=== PATIENT | male | born 1935 | race Caucasian/White ===

== ENCOUNTER 2022-08-31 14:09 | Emergency (ER) | payer MEDICARE, SELFPAY ==
[2022-08-31 14:15] VITALS: BP 155/79; PULSE 87; RESP 18; TEMP 36.6; O2SAT 96; BMI 25.8
--- NOTE | 2022-08-31 14:20 | DI.RAD.S_ITS ---
PROCEDURE: XR ELBOW LT MIN 3V INDICATIONS: fall/pain TECHNIQUE: 3 views of the elbow were acquired. COMPARISON: None. FINDINGS: Bones: No fractures or dislocations. No suspicious bony lesions. Soft tissues: No elbow joint effusion. No suspicious soft tissue calcifications. Soft tissue swelling posterior to the elbow and over the olecranon. IMPRESSION: No definitive fracture. If clinical symptoms persist or clinical suspicion for pathology is high, a repeat examination in 7-10 days, or advanced imaging such as CT or MRI is suggested for further evaluation. Dictated by: Zaria Moss M.D. on 08/31/2022 at 15:11 Approved by: Zaria Moss M.D. on 08/31/2022 at 15:12
--- NOTE | 2022-08-31 14:20 | DI.RAD.S_ITS ---
PROCEDURE: XR SHOULDER LT MIN 2V INDICATIONS: fall/pain TECHNIQUE: 3 views of the shoulder were acquired. COMPARISON: None. FINDINGS: Bones: No fractures or dislocations. No suspicious bony lesions. 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 Visualized ribs appear intact. Soft tissues: No suspicious soft tissue calcifications. IMPRESSION: 1. No definitive acute osseous abnormality. If clinical symptoms persist or clinical suspicion for pathology is high, a repeat examination in 7-10 days, or advanced imaging such as CT or MRI is suggested for further evaluation. 2. Moderate osteoarthritic changes. Dictated by: Zaria Moss M.D. on 08/31/2022 at 15:13 Approved by: Zaria Moss M.D. on 08/31/2022 at 15:14
--- NOTE | 2022-08-31 14:22 | DI.RAD.S_ITS ---
PROCEDURE: XR HIP W PEL IF DONE LT 2V INDICATIONS: fall/pain TECHNIQUE: AP pelvis with lateral view(s) of the left hip(s). COMPARISON: None. 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 2 surgical wires in the proximal femur. The more distal wire is fractured. Chronicity uncertain. No fractures or dislocations. Pelvic ring appears intact. No suspicious bony lesions. Note is made of right hip arthroplasty. 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 Soft tissues: The visualized bowel gas pattern is normal. No suspicious soft tissue calcifications. IMPRESSION: 1. Left hip arthroplasty. Fracture the more distal surgical wire is noted, suggesting chronicity. 2. No acute osseous abnormality. If clinical symptoms persist or clinical suspicion for pathology is high, a repeat examination in 7-10 days, or advanced imaging such as CT or MRI is suggested for further evaluation. Dictated by: Zaria Moss M.D. on 08/31/2022 at 15:14 Approved by: Zaria Moss M.D. on 08/31/2022 at 15:17
[2022-08-31] MEDS: HYDROCODONE/ACET 5/325 TABLET 1 TAB PO (15:42)
[2022-08-31] MEDS: LIDOCAINE PATCH 1 EACH ADH..PATCH TOP (15:42)
--- NOTE | 2022-08-31 15:46 | ED_ITS ---
HPI - Fall <RAZA Santana - Last Filed: 08/31/22 16:17> General Chief Complaint: Fall Stated Complaint: fell/lt shoulder inj Time Seen by Provider: 08/31/22 15:21 Source: patient Mode of arrival: Ambulatory History of Present Illness HPI Narrative: This is an 87-year-old who presents emergency department after a mechanical fall. Patient reports that he is had history of vertigo over the last few month s, has been in physical therapy for, today he tripped while golfing today and caught himself but fell onto his left shoulder and left elbow. He also injured his left hip. 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 He states that he did not hit his head, denies loss of consciousness, denies nausea vomiting or midline neck pain. Denies vision changes, has pain when he tries to lift his arm up, states that he has posterior shoulder pain, left elbow pain and an abrasion on it, and left hip pain. He is concerned about his hardware, states that he had 2 wires wrapped ar ound the bone to help hold it in many years ago. Dr. Hendricks from [facility] was patient's surgeon. Related Data Home Medications Medication Instructions Recorded Confirmed sildenafil 25 mg tablet (Viagra) ##0 10/12/16 Previous Rx's Medication Instructions Recorded acetaminophen 300 mg-codeine 30 mg 1 tab PO Q4HP PRN #14 tabs 10/12/16 tablet diclofenac sodium 1 % topical gel 2 g topical QID PRN pain #100 grams 08/31/22 hydrocodone 5 mg-acetaminophen 325 1 tab PO Q6H PRN pain #14 tabs 08/31/22 mg tablet lidocaine 5 % topical patch 1 patch topical Q12HR PRN shoulder 08/31/22 (Lidoderm) pain #30 ea Allergies Allergy/AdvReac Type Severity Reaction Status Date / Time ibuprofen [IBUPROFEN] Allergy Unknown Unverified 05/17/17 11:46 Review of Systems <RAZA Santana - Last Filed: 08/31/22 16:17> Review of Systems ROS Unobtainable: All systems reviewed & are unremarkable except as noted in HPI and below Patient History <RAZA Santana - Last Filed: 08/31/22 16:17> Social History Smoking Status: Never smoker Smoking Status: Never smoker Substance Use Type: does not use Exam <RAZA Santana - Last Filed: 08/31/22 16:17> Narrative Exam Narrative: Reviewed vitals signs and nursing notes. General: Pleasant, sitting upright, in no acute distress, well groomed, afebrile HEENT: symmetrical facial expressions, moist mucous membranes, neck is supple MSK: moves all extremities, no weakness, normal tone, ambulatory without deficit, patient has an abrasion to the left elbow, can fully flex and fully extend his left elbow without deficit, radial pulses 2+, warm skin with brisk cap refill. No tenderness over the olecranon or proximal radius/ulna. Patient's left shoulder with positive empty can test, tenderness over the posterior rotator cuff, mild tenderness over the acromioclavicular joint, no humerus tenderness or clavicle tenderness to palpation, patient has worst pain with external rotation, abduction and shoulder flexion Skin: brisk capillary refill Neuro: clear speech and normal cognition, A&O x3, GCS 15, no focal motor or sensation deficits Initial Vital Signs Initial Vital Signs: Vital Signs Temperature 97.8 F 08/31/22 14:15 Pulse Rate 87 08/31/22 14:15 Respiratory Rate 18 08/31/22 14:15 Blood Pressure 155/79 H 08/31/22 14:15 Pulse Oximetry 96 08/31/22 14:15 Oxygen Delivery Method Room Air 08/31/22 14:15 <Daniel Baker MD - Last Filed: 09/06/22 12:07> Initial Vital Signs Initial Vital Signs: Vital Signs Temperature 97.8 F 08/31/22 14:15 Pulse Rate 87 08/31/22 14:15 Respiratory Rate 18 08/31/22 14:15 Blood Pressure 155/79 H 08/31/22 14:15 Pulse Oximetry 96 08/31/22 14:15 Oxygen Delivery Method Room Air 08/31/22 14:15 Course <RAZA Santana - Last Filed: 08/31/22 16:17> Orders Ordered: Discontinued Medications Hydrocodone Bitart/Acetaminophen (Hydrocodone/Acet 5/325 Tablet) 1 tab PO NOW ONE Stop: 08/31/22 15:35 Last Admin: 08/31/22 15:42 Dose: 1 tab Documented By: KRISTEN Lidocaine (Lidocaine Patch 1 Each Adh..Patch) 1 each TOP NOW ONE Stop: 08/31/22 15:35 Last Admin: 08/31/22 15:42 Dose: 1 each Documented By: [facility] Vital Signs Vital signs: Vital Signs - 8 hr 08/31/22 14:15 Temperature 97.8 F Pulse Rate 87 Respiratory Rate 18 Blood Pressure 155/79 H Pulse Oximetry 96 Oxygen Delivery Method Room Air <Daniel Baker MD - Last Filed: 09/06/22 12:07> Orders Ordered: Discontinued Medications Hydrocodone Bitart/Acetaminophen (Hydrocodone/Acet 5/325 Tablet) 1 tab PO NOW ONE Stop: 08/31/22 15:35 Last Admin: 08/31/22 15:42 Dose: 1 tab Documented By: KRISTEN Lidocaine (Lidocaine Patch 1 Each Adh..Patch) 1 each TOP NOW ONE Stop: 08/31/22 15:35 Last Admin: 08/31/22 15:42 Dose: 1 each Documented By: [facility] Vital Signs Vital signs: Vital Signs - 8 hr 08/31/22 14:15 Temperature 97.8 F Pulse Rate 87 Respiratory Rate 18 Blood Pressure 155/79 H Pulse Oximetry 96 Oxygen Delivery Method Room Air MDM - Fall <RAZA Santana - Last Filed: 08/31/22 16:17> Imaging Data Extremity x-ray #1: Radiologist's Impression: PROCEDURE:? XR HIP W PEL IF DONE LT 2V ? INDICATIONS:? fall/pain ? TECHNIQUE:? AP pelvis with lateral view(s) of the left hip(s).? ? COMPARISON:? None. ? FINDINGS:? ? Bones:? There is total hip arthroplasty.? 2 surgical wires in the proximal femur.? The more distal wire is fractured.? Chronicity uncertain.? No fractures or dislocations.? Pelvic ring appears intact.? No suspicious bony lesions.? Note is made of right hip arthroplasty.? 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 ? Soft tissues:? The visualized bowel gas pattern is normal.? No suspicious soft tissue calcifications.? ? ? IMPRESSION:? ? 1. Left hip arthroplasty.? Fracture the more distal surgical wire is noted, suggesting chronicity. ? 2. No acute osseous abnormality.? ? If clinical symptoms persist or clinical suspicion for pathology is high, a repeat examination in 7-10 days, or advanced imaging such as CT or MRI is suggested for further evaluation. ? ? ? Dictated by: Zaria Moss M.D. on 08/31/2022 at 15:14 ? ? Approved by: Zaria Moss M.D. on 08/31/2022 at 15:17 ? Extremity x-ray #2: Radiologist's Impression: PROCEDURE:? XR SHOULDER LT MIN 2V ? INDICATIONS:? fall/pain ? TECHNIQUE:? 3 views of the shoulder were acquired.? ? COMPARISON:? None. ? FINDINGS:? ? Bones:? No fractures or dislocations.? No suspicious bony lesions.? 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 Visualized ribs appear intact.? ? Soft tissues:? No suspicious soft tissue calcifications.? ? IMPRESSION:? ? 1. No definitive acute osseous abnormality.? If clinical symptoms persist or clinical suspicion for pathology is high, a repeat examination in 7-10 days, or advanced imaging such as CT or MRI is suggested for further evaluation. ? 2. Moderate osteoarthritic changes.? ? ? Dictated by: Zaria Moss M.D. on 08/31/2022 at 15:13 ? ? Approved by: Zaria Moss M.D. on 08/31/2022 at 15:14 ? Extremity x-ray #3: Radiologist's Impression: PROCEDURE:? XR ELBOW LT MIN 3V ? INDICATIONS:? fall/pain ? TECHNIQUE:? 3 views of the elbow were acquired.? ? COMPARISON:? None. ? FINDINGS:? ? Bones:? No fractures or dislocations.? No suspicious bony lesions.? ? Soft tissues:? No elbow joint effusion.? No suspicious soft tissue calcifications.? Soft tissue swelling posterior to the elbow and over the olecranon. ? ? IMPRESSION:? No definitive fracture.? If clinical symptoms persist or clinical suspicion for pathology is high, a repeat examination in 7-10 days, or advanced imaging such as CT or MRI is suggested for further evaluation. ? ? Dictated by: Zaria Moss M.D. on 08/31/2022 at 15:11 ? ? Approved by: Zaria Moss M.D. on 08/31/2022 at 15:12 ? [facility] Narrative Medical decision making narrative: Chief Complaint: Fall with left shoulder, left elbow, and left hip pain Multiple etiologies for patient's complaint considered including, but not limit ed to: hardware failure of left total hip arthroplasty, acute fracture, hematoma / contusion, joint effusion of left elbow, left shoulder rotator cuff tear / injury, labrum tear, I have independently reviewed the patient's vital signs and nursing notes as well as prior records if available. patient's x-rays came back negative for acute fracture or joint effusions, I suspect the patient has a left sided rotator cuff injury as he has positive rotator cuff testing to include empty can test, positive arc sign, cross arm test and Schulte test. Recommend he follow-up with prolonged orthopedics for further imaging and follow-up. patient's left hip x-ray shows fractured wire with unknown chronicity. this could be older new but will have patient follow- up about his hip pain since he is complaining of this. He has history of low platelets and is unable to take NSAIDs. He was prescribed hydrocodone to use for pain in addition to diclofenac gel and lidocaine patches. Recommend follow- up and physical therapy, returning to the emergency department for any new or worsening symptoms Social considerations that may affect disposition: none Questions are addressed and there is agreement with the plan and for follow-up with [facility]. I consulted with the ED attending physician Dr. Baker as needed for higher level of care considerations and they were available for discussion and recommendations regarding plan of care and diagnostic testing. Patient is appropriate for outpatient management. Discharge Plan Departure Patient Disposition: Home Clinical Impression: History of total left hip arthroplasty, Failed hardware Fall Qualifiers: Encounter type: initial encounter Qualified Code(s): W19.XXXA - Unspecified fall, initial encounter Injury of shoulder, left Qualifiers: Encounter type: initial encounter Qualified Code(s): S49.92XA - Unspecified injury of left shoulder and upper arm, initial encounter Injury of left rotator cuff Qualifiers: Encounter type: initial encounter Qualified Code(s): S46.002A - Unspecified injury of muscle(s) and tendon(s) of the rotator cuff of left shoulder, initial encounter Injury of elbow, left Qualifiers: Encounter type: initial encounter Qualified Code(s): S59.902A - Unspecified injury of left elbow, initial encounter Hip injury Qualifiers: Encounter type: initial encounter Laterality: left Qualified Code(s): S79.912A - Unspecified injury of left hip, initial encounter Instructions: Shoulder Tendinopathy, Rotator Cuff Injury Activity Restrictions/Additional Instructions: *You have been diagnosed with a fall with a left shoulder injury concerning for posterior rotator cuff injury, history of a left hip arthroplasty with a fracture of the more distal surgical wire, this is likely related to remote incident and not acute. The shoulder x-ray does not show any obvious fracture or bony abnormalities, you have moderate arthritis and changes over the acromioclavicular jointAnd glenohumeral joint. These may be Increasingly sore since your injury. The left elbow does not show fluid within the joint or a definitive fracture, there is soft tissue swelling over the olecranon where your abrasionIs. PleaseIce this, take hydrocodone as needed for pain, practice gentle range of motion of your left shoulder frequently throughout the day to preventStiffness, and use topical lidocaine patches every 12 hours as needed for the posteriorShoulder. I hope you feel better soon, please call and schedule an appointment at [facility], today Dr. Otoole is foundation engineer. I sent your medications to [facility]. *Please call and schedule follow up with your primary care provider in 2-3 days, at least for an update. Let them know you were seen in the Emergency Department for the above problem. We will electronically transmit a record of today's note if your PCP or specialist is in our system. *If you do not have a primary care provider please contact [phone] to establish care with one of the [facility] primary care providers. *Return to the Emergency Department for worsening symptoms, inability to keep liquids down, fever greater than 101F, chills, or other concerning symptom. Prescriptions: New hydrocodone-acetaminophen 5-325 mg tablet 1 tab PO Q6H PRN (Reason: pain) Qty: 14 0RF lidocaine [Lidoderm] 5 % adhesive patch,medicated 1 patch topical Q12HR PRN (Reason: shoulder pain) Qty: 30 0RF Rx Instructions: leave on most painful area for up to 12 hrs diclofenac sodium 1 % gel 2 g topical QID PRN (Reason: pain) Qty: 100 0RF Rx Instructions: Apply to single area of pain up to 4 times a day as needed for pain, do not apply to open wound No Action sildenafil [Viagra] 25 MG tablet Qty: 0 acetaminophen-codeine 30 MG/300 MG tablet 1 tab PO Q4HP PRNQty: 14 0RF Referrals: [facility] [Provider Group] Pinky Kulkarni MD [Primary Care Provider] - Stand Alone Forms: Patient Portal/API <Daniel Baker MD - Last Filed: 09/06/22 12:07> Cosign ED Attending Ogature Attestation: I was immediately available in the department for consultation. ?This documentation has been reviewed and I agree with assessment and plan. Supervised by Daniel Baker MD
--- NOTE | 2022-08-31 15:52 | PC.NURSE ---
abrasion noted to left proximal humerus. Skin tear and abrasion noted to left elbow. Wounds cleaned and dressed wtih bandages. Patient Denies LOC with fall, denies neck pain. CMS intact in left distal wrist. Ambulatory on left hip. Soreness ntoed per patient.
== END 2022-08-31 15:55 | disposition home or self-care (01) ==
PROVIDERS: Emergency Provider Nurse Practitioner Critical Care Medicine; Family Provider Family Medicine; PCP Family Medicine
DX: S79.912A Unspecified injury of left hip, initial encounter (principal); S59.902A Unspecified injury of left elbow, initial encounter; S46.002A Unspecified injury of muscle(s) and tendon(s) of the rotator cuff of left shoulder, initial encounter; S49.92XA Unspecified injury of left shoulder and upper arm, initial encounter; W01.0XXA Fall on same level from slipping, tripping and stumbling without subsequent striking against object, initial encounter; Z96.642 Presence of left artificial hip joint
CPT/HCPCS: 73030; 73080; 73502; 99283